=== PATIENT | male | born 1990 | race Caucasian/White ===

== ENCOUNTER 2016-03-05 21:57 | Emergency (ER) | payer OTHER ==
[~2016-03-05] VITALS: Ht 182.9 cm; Wt 77.1 kg
--- NOTE | 2016-03-05 22:08 | Emergency Room Report ---
History of Present Illness General Chief Complaint: Medication Refill Source: Patient, EMS Present Illness HPI This is a 25-year-old male with a history of bipolar and anxiety. He presents with chief complaint of feeling anxious and racing thoughts. His been weaning himself off of his medication the last couple weeks. Since he went down to the corner but does now have these symptoms. He try exercising, hot bath, talkative phone is not helping much. He was concerned as when he called 911. He has date suicidal thoughts but no Letcher [place]. Denies any alcohol or drug use. Denies any fever or chills. Denies any nausea vomiting. He has followup at [facility] in [facility]. Allergies: Coded Allergies: No Known Allergies (Unverified , 03/05/16) Patient History Past Medical History: see triage record, old chart reviewed, psych hx Past Surgical History: other Pertinent Family History: none Social History: Reports: drug use Immunizations: other Reviewed Nursing Documentation: PMH: Agreed, PSxH: Agreed Nursing Documentation-PMH History Of Psychiatric Problem: Yes - bipolar,depression,anxiety Review of Systems Eye: Denies: blurred vision, eye pain ENT: Denies: ear pain, nose congestion, throat swelling Respiratory: Denies: cough, shortness of breath Cardiovascular: Denies: chest pain, palpitations Gastrointestinal: Denies: abdominal pain, diarrhea, nausea, vomiting Musculoskeletal: Denies: back pain, joint pain Skin: Denies: rash Neurological: Denies: headache, numbness Endocrine: Denies: increased thirst, increased urine Hematologic/Lymphatic: Denies: easy bruising All Other Systems: negative except mentioned in HPI Physical Exam Vital Signs Date Time Temp Pulse Resp B/P Pulse Ox O2 Delivery O2 Flow Rate FiO2 03/05/16 21:56 98.4 92 18 142/101 99 Room Air vitals normal Sp02 EP Interpretation: reviewed, normal General Appearance: well appearing, no apparent distress, alert Head: normocephalic, atraumatic Eyes: bilateral eye EOMI, bilateral eye PERRL ENT: hearing grossly normal, normal pharynx Neck: full range of motion, supple, no meningismus Respiratory: chest non-tender, lungs clear, normal breath sounds Cardiovascular #1: regular rate, rhythm, no murmur Gastrointestinal: normal bowel sounds, non tender, no mass, no organomegaly, no bruit, non-distended Musculoskeletal: back normal, gait/station normal, normal range of motion Psychiatric: anxious Skin: warm/dry Medical Decision Making Diagnostic Impression: Primary Impression: Encounter for medication refill Additional Impression: Anxiety attack ER Course Patient felt better after a dose of Ativan. He denies any suicidal thought homicidal thought here. He has a safe place to go. We'll discharge home with refill on his prescription. Told patient to go back on the middle does that he was on before. He may need a longer weaning process. Last Vital Signs Date Time Temp Pulse Resp B/P Pulse Ox O2 Delivery O2 Flow Rate FiO2 03/05/16 21:56 98.4 92 18 142/101 99 Room Air Status: improved Disposition: HOME, SELF-CARE Condition: Stable Scripts Clonidine Hcl (CLONIDINE HCL) 0.2 Mg Tablet 0.2 MG PO DAILY, #30 TAB Prov: COREY HASSAN M.D. 03/05/16 Additional Instructions: Followup with mental health within a week. Go back to your second step of the weaning process. You may need a longer period of weaning off any medications. Return for any concern. COREY HASSAN M.D. Mar 05, 2016 22:08
[2016-03-05] MEDS ORDERED: LORazepam Inj 2mg/ml 1ml IM ONE (22:15)
[2016-03-05] MEDS ORDERED: CLONIDINE HCL0.2 MG PO (22:25)
[2016-03-05 22:33] VITALS: BP 138/98
[2016-03-05 22:37] VITALS: BP 138/98
== END 2016-03-05 22:37 | disposition home or self-care (01) ==
LOC: EDBD 21:57 → EMR 22:20
DX: Z76.0 Encounter for issue of repeat prescription (principal); F41.9 Anxiety disorder, unspecified; F32.9 Major depressive disorder, single episode, unspecified
CPT/HCPCS: 96372; 99283

== ENCOUNTER 2016-04-07 04:57 | Emergency (ER) | payer BC, OTHER ==
[~2016-04-07] VITALS: Ht 180.3 cm; Wt 72.6 kg
[~2016-04-07 04:57] MED LIST: CLONIDINE HCL0.2 MG PO
--- NOTE | 2016-04-07 05:08 | Emergency Room Report ---
History of Present Illness General Chief Complaint: Behavioral Complaint Source: Patient (MILES IVEY D.O.) Present Illness HPI Patient states that he was at home and he takes a lot of psychiatric medications Was having thoughts of taking the pills Denies any headache or visual changes denies any chest pain or shortness of breath Denies any back or flank pain He did take an Ativan prior to arrival he states that he feels somewhat less anxious Patient reports being recently in a psychiatric facility As the patient was having continued thoughts of suicidal ideation He called 911 He reports being diagnosed with bipolar disorder, significant depression (MILES IVEY D.O.) Allergies: Coded Allergies: No Known Allergies (Unverified , 03/05/16) Patient History Past Medical History: see triage record Pertinent Family History: none Reviewed Nursing Documentation: PMH: Agreed, PSxH: Agreed (MILES IVEY D.O.) Nursing Documentation-PMH History Of Psychiatric Problem: Yes - ADHD, DEPRESSION, ANXIETY, BIPOLAR (MILES IVEY D.O.) Review of Systems All Other Systems: negative except mentioned in HPI (MILES IVEY D.O.) Physical Exam Vital Signs Date Time Temp Pulse Resp B/P Pulse Ox O2 Delivery O2 Flow Rate FiO2 04/07/16 04:54 98.8 72 16 125/64 99 Room Air Sp02 EP Interpretation: reviewed, normal General Appearance: well appearing, no apparent distress Head: normocephalic, atraumatic Eyes: bilateral eye EOMI, bilateral eye PERRL ENT: hearing grossly normal, normal pharynx, TMs + canals normal, uvula midline Neck: full range of motion, supple, no meningismus, no bony tend Respiratory: lungs clear, normal breath sounds, no rhonchi, no respiratory distress, no retraction, no accessory muscle use Cardiovascular #1: normal peripheral pulses, regular rate, rhythm, no edema, no gallop, no JVD, no murmur Gastrointestinal: normal bowel sounds, non tender, soft, no mass, no organomegaly, non-distended, no guarding, no hernia, no pulsatile mass, no rebound Genitourinary: no CVA tenderness Musculoskeletal: normal inspection Neurologic: oriented x3, responsive, safety technician III-XII nml as tested, motor strength/ tone normal, sensory intact Psychiatric: other - Verbalizing suicidal thoughts Skin: normal color, no rash, warm/dry, palpation normal Lymphatic: normal inspection, no adenopathy (MILES IVEY D.O.) Medical Decision Making Diagnostic Impression: Primary Impression: Behavioral change Additional Impression: Suicidal behavior ER Course Given the patient's history and presentation initial blood work is obtained for medical clearance patient remains hemodynamically stable And the son requires further PET team consultation Labs Test 04/07/16 05:14 White Blood Count 7.7 K/UL (4.8-10.8) Red Blood Count 5.25 M/UL (4.70-6.10) Hemoglobin 15.9 G/DL (14.2-18.0) Hematocrit 46.4 % (42.0-52.0) Mean Corpuscular Volume 88 FL (80-99) Mean Corpuscular Hemoglobin 30.2 PG (27.0-31.0) Mean Corpuscular Hemoglobin Concent 34.2 G/DL (32.0-36.0) Red Cell Distribution Width 12.2 % (11.6-14.8) Platelet Count 187 K/UL (150-450) Mean Platelet Volume 7.8 FL (6.5-10.1) Neutrophils (%) (Auto) 59.6 % (45.0-75.0) Lymphocytes (%) (Auto) 29.9 % (20.0-45.0) Monocytes (%) (Auto) 8.6 % (1.0-10.0) Eosinophils (%) (Auto) 1.2 % (0.0-3.0) Basophils (%) (Auto) 0.8 % (0.0-2.0) Sodium Level 139 mEQ/L (135-145) Potassium Level 3.9 mEQ/L (3.4-4.9) Chloride Level 101 mEQ/L (98-107) Carbon Dioxide Level 24 mEQ/L (20-30) Anion Gap 14 (5-15) Blood Urea Nitrogen 17 mg/dL (7-23) Creatinine 0.9 mg/dL (0.7-1.2) Estimat Glomerular Filtration Rate > 60 mL/min (>60) Glucose Level 94 mg/dL (74-106) Calcium Level 9.8 mg/dL (8.6-10.2) Total Bilirubin 0.7 mg/dL (0.0-1.2) Aspartate Amino Transf (AST/SGOT) 16 U/L (5-40) Alanine Aminotransferase (ALT/SGPT) 19 U/L (3-41) Alkaline Phosphatase 63 U/L (40-129) Total Protein 7.0 g/dL (6.6-8.7) Albumin 4.4 g/dL (3.5-5.2) Globulin 2.6 g/dL Albumin/Globulin Ratio 1.6 (1.0-2.7) Salicylates Level < 1 mg/dL (10-30) Urine Opiates Screen Negative (NEGATIVE) Acetaminophen Level < 10 ug/mL (10-30) Urine Barbiturates Screen Negative (NEGATIVE) Phencyclidine (PCP) Screen Negative (NEGATIVE) Urine Amphetamines Screen Negative (NEGATIVE) Urine Benzodiazepines Screen Positive (NEGATIVE) Urine Cocaine Screen Negative (NEGATIVE) Urine Marijuana (THC) Screen Negative (NEGATIVE) Serum Alcohol < 10 mg/dL (MILES IVEY D.O.) ER Course Received signout from Dr Ivey for patient with SI requiring PET Dr Mari of [facility] accepted patient for transfer at 924am Patient remains stable in our ED No other acute issue in ED (FELIX JEROME M.D.) Last Vital Signs Date Time Temp Pulse Resp B/P Pulse Ox O2 Delivery O2 Flow Rate FiO2 04/07/16 04:54 98.8 72 16 125/64 99 Room Air Status: improved (MILES IVEY D.O.) Status: improved (FELIX JEROME M.D.) Disposition: XFER TO PSYCH HOSP/UNIT Condition: Serious MILES IVEY D.O. Apr 07, 2016 05:08 FELIX JEROME M.D. Apr 07, 2016 09:25
[2016-04-07 05:18] VITALS: BP 125/64
[2016-04-07 05:24] LABS: BASOPHILS % (AUTO) 0.8 % (0.0-2.0); EOSINOPHILS % (AUTO) 1.2 % (0.0-3.0); LYMPHOCYTES % (AUTO) 29.9 % (20.0-45.0); MEAN CORPUSCULAR HEMOGLOBIN 30.2 PG (27.0-31.0); MEAN CORPUSCULAR HGB CONC 34.2 G/DL (32.0-36.0); MEAN CORPUSCULAR VOLUME 88 FL (80-99); MEAN PLATELET VOLUME 7.8 FL (6.5-10.1); MONOCYTES % (AUTO) 8.6 % (1.0-10.0); NEUTROPHILS % (AUTO) 59.6 % (45.0-75.0); PLATELET COUNT 187 K/UL (150-450); RED BLOOD COUNT 5.25 M/UL (4.70-6.10); RED CELL DISTRIBUTION WIDTH 12.2 % (11.6-14.8); WHITE BLOOD COUNT 7.7 K/UL (4.8-10.8)
[2016-04-07 05:42] LABS: ACETAMINOPHEN < 10 ug/mL (10-30); ALANINE AMINOTRANSFERASE 19 U/L (3-41); ALBUMIN/GLOBULIN RATIO 1.6 (1.0-2.7); ALCOHOL < 10 mg/dL; ANION GAP 14 (5-15); ASPARTATE AMINO TRANSFERASE 16 U/L (5-40); CALCIUM 9.8 mg/dL (8.6-10.2); CARBON DIOXIDE 24 mEQ/L (20-30); CHLORIDE 101 mEQ/L (98-107); CREATININE 0.9 mg/dL (0.7-1.2); GLOMERULAR FILTRATION RATE > 60 mL/min (>60); HEMOLYSIS 7; POTASSIUM 3.9 mEQ/L (3.4-4.9); SODIUM 139 mEQ/L (135-145)
[2016-04-07 06:41] VITALS: BP 128/66
[2016-04-07 08:00] VITALS: BP 120/60
[2016-04-07 10:39] VITALS: BP 125/63
[2016-04-07 10:42] VITALS: BP 125/63
== END 2016-04-07 10:43 ==
LOC: EDBD 04:57 → EMR 05:07
DX: R46.89 Other symptoms and signs involving appearance and behavior (principal); R45.851 Suicidal ideations
CPT/HCPCS: 36415; 80053; 80300; 85025; 99285; G0480; 80329